=== PATIENT | female | born 2005 | race Caucasian/White ===

== ENCOUNTER 2023-05-27 22:29 | Emergency (ER) | payer OTHER ==
[~2023-05-27] VITALS: Ht 160 cm; Wt 46.3 kg
--- NOTE | 2023-05-27 23:24 | NUR ---
Patient out of unit for ct scan via wheelchair.
[2023-05-27 23:26] LABS: HEMATOCRIT 36.7 % (31.2-41.9); MEAN CORPUSCULAR HEMOGLOBIN 26.6 uug (24.7-32.8); MEAN CORPUSCULAR VOLUME 82.4 fL (75.5-95.3); PLATELET COUNT (AUTO) 230 K/uL (179-408)
[2023-05-27 23:26] LABS: *BILIRUBIN,URIN NEGATIVE (NEGATIVE); *CLARITY,URINE CLOUDY (CLEAR); *COLOR,URINE YELLOW (YELLOW); *KETONES,URINE TRACE (NEGATIVE); *UROBILINOGEN,URINE 0.2 E.U./dl (NORMAL); LEUKOCYTE ESTERASE ,URINE NEGATIVE (NEGATIVE); NITRITE, URINE NEGATIVE (NEGATIVE); PH,URINE 7.5 (5.0-8.0); UGLUCOSE NEGATIVE (NEGATIVE)
--- NOTE | 2023-05-27 23:33 | NUR ---
Patient back from ct scan with no distress noted.
[2023-05-27 23:37] LABS: BILIRUBIN,DIRECT 0.1 mg/dL (0.0-0.2); BILIRUBIN,TOTAL 0.2 mg/dL (0.2-1.0); CREATININE 0.7 mg/dL (0.6-1.3); POTASSIUM 3.7 mmol/L (3.5-5.1)
[2023-05-27 23:48] LABS: *BLOOD, URINE TRACE (NEGATIVE)
[2023-05-27 23:55] LABS: *AMPHETAMINE, URINE NEGATIVE (NEGATIVE); *CANNABINOID, URINE NEGATIVE (NEGATIVE); *COCCAINE, URINE NEGATIVE (NEGATIVE); *PHENCYCLIDINE SCREEN,URINE NEGATIVE (NEGATIVE)
[2023-05-28 01:02] LABS: BACTERIA,URINE FEW /HPF (NONE SEEN); RBC,URINE 0-3 /HPF (0-3); SQUAMOUS EPITHELIAL CELL,UR FEW /HPF (NONE SEEN); WBC,URINE NONE SEEN /HPF (0-3)
[2023-05-28 01:03] LABS: URINE AMORPHOUS PHOSPHATES MANY /HPF
[2023-05-28] MEDS ORDERED: KETOROLAC TROMETHAMINE 60 MG INJ IM ONE ×2 (01:15→02:00)
[2023-05-28] MEDS ORDERED: CYCL10TA9 PO (03:51)
[2023-05-28] MEDS ORDERED: NAPR-1164 PO (03:51)
[2023-05-28 04:00] VITALS: BP 128/72; TEMP 98.2; O2SAT 100
--- NOTE | 2023-05-28 04:00 | NUR ---
Patient discharged to home in stable condition with father taking patient home. Written and verbal after care instructions given. Patient verbalizes understanding of instructions. Stressed follow up or return to ER for worsening s/s.
== END 2023-05-28 04:00 | disposition home or self-care (01) ==
LOC: ER 22:32
DX: R68.84 Jaw pain (principal); R41.82 Altered mental status, unspecified; R10.2 Pelvic and perineal pain; Z79.899 Other long term (current) drug therapy
CPT/HCPCS: 80076; 80048; 81001; 83690; 85025; 84702; 36415; 93005; 70450; 99285; 80320; 80307; 96372; J1885; A4663; G0480